=== PATIENT | female | born 2000 | race American Indian/Alaskan Native ===

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

== ENCOUNTER 2021-01-02 14:29 | Emergency (ER) | payer BC ==
--- NOTE | 2021-01-02 15:16 | NUR ---
Attempted to call patient at listed number. Patient was not available per voicemail.
[2021-01-03] MEDS ORDERED: DEXA4TAB67 PO (16:56)
== END 2021-01-02 16:10 | disposition left against medical advice (07) ==
LOC: ER 14:29
DX: Z09 Encounter for follow-up examination after completed treatment for conditions other than malignant neoplasm (principal); Z53.21 Procedure and treatment not carried out due to patient leaving prior to being seen by health care provider

== ENCOUNTER 2021-01-03 16:05 | Emergency (ER) | payer BC ==
[~2021-01-03] VITALS: Ht 162.6 cm; Wt 72.7 kg
[2021-01-03 16:48] VITALS: BP 132/81
[2021-01-03] MEDS ORDERED: DEXA4TAB67 PO (16:56)
== END 2021-01-03 17:48 | disposition home or self-care (01) ==
LOC: ER 16:05
DX: J02.9 Acute pharyngitis, unspecified (principal); Z20.822 Contact with and (suspected) exposure to COVID-19; B34.9 Viral infection, unspecified; R43.8 Other disturbances of smell and taste; R19.7 Diarrhea, unspecified; R05 Cough; R53.83 Other fatigue; Z79.899 Other long term (current) drug therapy
CPT/HCPCS: 36415; 99283; U0003

== ENCOUNTER 2021-08-09 04:01 | Emergency (ER) | payer OTHER, BC ==
[~2021-08-09] VITALS: Ht 162.6 cm; Wt 83.9 kg
[~2021-08-09 04:01] MED LIST: DEXA4TAB67 PO
[2021-08-09 04:13] VITALS: BP 137/79
== END 2021-08-09 07:18 | disposition left against medical advice (07) ==
LOC: ER 04:02
DX: M54.2 Cervicalgia (principal); Z53.21 Procedure and treatment not carried out due to patient leaving prior to being seen by health care provider

== ENCOUNTER 2024-05-31 22:27 | Emergency (ER) | payer BC, OTHER ==
[~2024-05-31] VITALS: Ht 162.6 cm; Wt 93.0 kg
[2024-05-31 23:49] LABS: BASOPHILS % (AUTO) 0.5 % (0-1); EOSINOPHILS # (AUTO) 0.1 X10'3 (0-0.9); HEMATOCRIT 40.7 % (35.0-45.0); HEMOGLOBIN 13.5 g/dl (12.0-16.0); LYMPHOCYTES # (AUTO) 1.5 X10'3 (1.1-4.8); LYMPHOCYTES % (AUTO) 19.1 % (21-51); MEAN CORPUSCULAR HEMOGLOBIN 28.7 PG (27.0-31.0); MEAN CORPUSCULAR HGB CONC 33.1 g/dL (33.0-36.5); MEAN CORPUSCULAR VOLUME 86.7 FL (78-98); MEAN PLATELET VOLUME 8.8 FL (7.4-10.4); MONOCYTES # (AUTO) 0.6 X10'3 (0-0.9); MONOCYTES % (AUTO) 7.5 % (2-12); NEUTROPHILS # (AUTO) 5.5 X10'3 (1.8-7.7); NEUTROPHILS % (AUTO) 71.9 % (42-75); PLATELET COUNT 227 X10'3 (140-440); RED CELL DISTRIBUTION WIDTH 13.7 % (11.5-14.5); WHITE BLOOD COUNT 7.6 X10'3 (4.5-11.0)
[2024-05-31] MEDS: normal saline 1000ml 1,000 ML IV ONE (23:54)
[2024-05-31] MEDS ORDERED: NO HOME MEDS (23:54)
[2024-05-31 23:57] LABS: ALBUMIN 3.7 G/DL (3.4-5.0); ANION GAP 10 (8-16); BLOOD UREA NITROGEN 13 MG/DL (7-18); BUN/CREATININE RATIO 17.6 (10.0-20.0); CALCIUM 8.9 MG/DL (8.5-10.1); CHLORIDE 104 MMOL/L (99-107); CREATININE 0.74 MG/DL (0.40-0.90); GLUCOSE 86 MG/DL (70-104); POTASSIUM 3.5 MMOL/L (3.5-5.1); SODIUM 140 MMOL/L (135-145); TOTAL CARBON DIOXIDE 25.8 MMOL/L (24-32); eCRCL 103 ML/MIN; eGFR > 90 ML/MIN
[2024-06-01] MEDS ORDERED: CEPH500C2 PO (00:15)
[2024-06-01] MEDS ORDERED: cefTAZidime 1 GM/NS 100ML IVPB 100 ML IV ONE (00:15)
[2024-06-01] MEDS: CefTRIAXone/D5W-Rocephin 1gm 50 ML IV ONE (00:48)
[2024-06-01 01:25] LABS: BILIRUBIN,URINE NEGATIVE (Neg); CLARITY,URINE CLOUDY (Clear); COLOR,URINE YELLOW (Yellow); GLUCOSE, URINE NEGATIVE (Neg); KETONES,URINE NEGATIVE (Neg); LEUKOCYTE ESTERASE ,URINE NEGATIVE (Neg); NITRITES, URINE POSITIVE (Neg); OCCULT BLOOD,URINE MODERATE (Neg); PROTEIN,URINE NEGATIVE (Neg); URINE HCG NEGATIVE (NEG); UROBILINOGEN,URINE 0.2 E.U/dL (0.2-1.0)
[2024-06-01 01:31] LABS: UA COLLECTION TYPE CLN CATCH MIDSTREAM
[2024-06-01 01:38] LABS: BACTERIA,URINE 4+ /HPF (Neg); MUCUS STRANDS NONE SEEN /LPF (Neg); SQUAMOUS EPITHELIAL CELL,UR MANY /LPF (FEW)
[2024-06-01 01:39] LABS: TRANSITIONAL EPI CELLS,URINE FEW /HPF
[2024-06-01 01:54] VITALS: BP 114/62; PULSE 78; RESP 14; TEMP 97.8; O2SAT 99
== END 2024-06-01 01:56 | disposition home or self-care (01) ==
LOC: ER 22:28
DX: L03.115 Cellulitis of right lower limb (principal); Z79.2 Long term (current) use of antibiotics
CPT/HCPCS: 36415; 80048; 81001; 81025; 83605; 84145; 85025; 87040; 87077; 87186; 96365; 99284; J0696; J7030

== ENCOUNTER 2024-06-06 17:46 | Emergency (ER) | payer BC ==
[~2024-06-06] VITALS: Ht 162.6 cm; Wt 93.7 kg
[~2024-06-06 17:46] MED LIST changes: +CEPH500C2 PO; -DEXA4TAB67 PO; +NO HOME MEDS
[2024-06-06 17:52] VITALS: PULSE 111; TEMP 97.8
[2024-06-06] MEDS ORDERED: CLIN-167 PO (19:04)
[2024-06-06 19:30] VITALS: RESP 18
== END 2024-06-06 19:33 | disposition home or self-care (01) ==
LOC: ER 17:46
DX: K04.7 Periapical abscess without sinus (principal); Z79.2 Long term (current) use of antibiotics
CPT/HCPCS: 99283